=== PATIENT | male | born 1940 | race African-American/Black ===

== ENCOUNTER 2022-09-23 09:00 | Inpatient (IN) ==
[2022-09-23] MEDS ORDERED: LIDOCAINE 2% TOP JELLY 20 ML VIAL INTRAURETH ONE (09:10)
[2022-09-23] MEDS ORDERED: VANCOMYCIN INJ 1,000 MG in SODIUM CHLORIDE 0.9% 250 ML IV STA (09:11)
[2022-09-23 09:37] LABS: Bacteria,Urine Few /HPF (Few); Bilirubin,Urine Negative (Negative); Blood, Urine Small mg/dL (Negative); Glucose,Urine (UA) Negative (Negative); Ketones,Urine Trace mg/dL (Negative); Mucus,Urine Occasional /LPF (Occasional); Nitrite,Urine Negative (Negative); Protein,Urine 30 mg/dL (Negative); RBC,Urine 2 /HPF (0-4); Squamous Epithelial Cell,Urine Occasional /HPF (0-10); Urine Appearance Clear (Clear); Urine Color Dark Yellow (Yellow); Urine Specific Gravity 1.015 (1.001-1.035)
[2022-09-23 10:04] LABS: Basophils # 0.1 10*3/uL (0.0-0.2); Basophils % 0.2 % (0.0-0.8); Eosinophils % 0.1 % (0.00-10.9); Hematocrit 29.5 VOL% (42.0-52.0); Hemoglobin 10.2 GM/DL (14.0-18.0); Immature Granulocytes % 5.9 %; Immature Granulocytes Absolute 1.96 #; Lymphocytes # 0.8 10*3/uL (1.4-4.0); Lymphocytes % 2.3 % (21.2-54.2); Mean Corpuscular HGB Conc 34.6 GM/DL (32-36); Mean Corpuscular Volume 95.2 FL (87-102); Mean Platelet Volume 10.1 FL (9.6-12.0); Monocytes # 2.4 10*3/uL (0.11-0.8); Monocytes % 7.3 % (1.7-12.7); Neutrophils % 84.2 % (38.7-73.9); Platelet Count 198 T/CUMM (130-400); Red Cell Distribution Width 12.6 % (9.3-17.3); White Blood Count 33.3 T/CUMM (4-12)
[2022-09-23 10:27] LABS: Band Neutrophils 3 % (0-10); Hypochromia Slight; Lymphocytes 2 % (20-55); Platelet Estimate Adequate; Total Cells Counted 100
[2022-09-23 10:28] LABS: Albumin 2.6 G/DL (3.4-5.0); Bilirubin,Total 1.1 MG/DL (0.20-1.00); Calcium 9.6 MG/DL (8.5-10.1); Osmolality,Calculated 261.9 MOS/KG (273-304); Potassium 4.8 MMOL/L (3.5-5.1)
[2022-09-23] MEDS ORDERED: ALBUTEROL 2.5 MG/3 ML NEB RESP TX PRN (11:33)
[2022-09-23] MEDS ORDERED: hydrALAZINE 20 MG/1 ML VIAL IV PRN (11:33)
[2022-09-23] MEDS ORDERED: ACETAMINOPHEN 325 MG TABLET PO PRN (11:33)
[2022-09-23] MEDS: SODIUM CHLORIDE 0.9% 1,000 ML IV SCH ×2 (12:41→21:17)
[2022-09-23] MEDS: LEVOFLOXACIN INJ 750 MG/150 ML PREMIX IV SCH (12:42)
[2022-09-23] MEDS ORDERED: MECLIZINE 25 MG TABLET PO PRN (15:11)
[2022-09-23] MEDS: TAMSULOSIN 0.4 MG CAPSULE PO SCH (21:13)
[2022-09-23] MEDS: DOCUSATE SODIUM 100 MG CAPSULE PO SCH (21:13)
[2022-09-23] MEDS: OSELTAMIVIR 30 MG CAPSULE PO SCH (21:13)
[2022-09-23] MEDS: TRAVOPROST 0.004% OPH SOLN 2.5 ML BOTTLE BOTH EYES SCH (21:14)
[2022-09-24 04:49] LABS: Basophils % 0.1 % (0.0-0.8); Hemoglobin 9.9 GM/DL (14.0-18.0); Immature Granulocytes % 7.5 %; Immature Granulocytes Absolute 2.23 #; Lymphocytes # 0.6 10*3/uL (1.4-4.0); Mean Corpuscular HGB Conc 34.1 GM/DL (32-36); Mean Corpuscular Volume 95.4 FL (87-102); Mean Platelet Volume 9.8 FL (9.6-12.0); Monocytes # 1.8 10*3/uL (0.11-0.8); Neutrophils % 84.4 % (38.7-73.9); Platelet Count 176 T/CUMM (130-400); Red Blood Count 3.04 MC/CUMM (3.8-5.5); Red Cell Distribution Width 12.7 % (9.3-17.3); White Blood Count 29.7 T/CUMM (4-12)
[2022-09-24] MEDS: SODIUM CHLORIDE 0.9% 1,000 ML IV SCH ×3 (05:00→20:07)
[2022-09-24 05:30] LABS: Band Neutrophils 9 % (0-10); Calcium 9.3 MG/DL (8.5-10.1); Lymphocytes 1 % (20-55); Osmolality,Calculated 271.2 MOS/KG (273-304); Potassium 3.8 MMOL/L (3.5-5.1); Risk Ratio 2.7; Thyroid Stimulating Hormone 1.2 uIU/ml (0.358-3.74); Total Cells Counted 100
[2022-09-24 05:31] LABS: Microcytosis 1+; Ovalocytes Slight; Polychromasia Slight
[2022-09-24 05:32] LABS: Platelet Estimate Adequate
[2022-09-24] MEDS: amLODIPine 10 MG TABLET PO SCH (08:25)
[2022-09-24] MEDS: OSELTAMIVIR 30 MG CAPSULE PO SCH ×2 (08:25→20:08)
[2022-09-24] MEDS: DOCUSATE SODIUM 100 MG CAPSULE PO SCH ×2 (08:25→20:08)
[2022-09-24] MEDS: PANTOPRAZOLE 40 MG TABLET PO SCH (08:25)
[2022-09-24 12:12] LABS: % Iron Saturation 8.2 % (18-50); Ferritin 996.5 ng/mL (26-388)
[2022-09-24 12:12] LABS: Folate 4.59 NG/ML (5.38-24.0)
[2022-09-24] MEDS: LEVOFLOXACIN INJ 750 MG/150 ML PREMIX IV SCH (12:35)
[2022-09-24] MEDS: TAMSULOSIN 0.4 MG CAPSULE PO SCH (20:08)
[2022-09-24] MEDS: TRAVOPROST 0.004% OPH SOLN 2.5 ML BOTTLE BOTH EYES SCH (20:08)
[2022-09-24] MEDS: FOLIC ACID 1 MG TABLET PO SCH (20:08)
[2022-09-25] MEDS: SODIUM CHLORIDE 0.9% 1,000 ML IV SCH (04:24)
[2022-09-25 05:23] LABS: Basophils # 0.1 10*3/uL (0.0-0.2); Basophils % 0.2 % (0.0-0.8); Hematocrit 30.4 VOL% (42.0-52.0); Immature Granulocytes % 4.1 %; Immature Granulocytes Absolute 1.29 #; Lymphocytes # 0.5 10*3/uL (1.4-4.0); Lymphocytes % 1.7 % (21.2-54.2); Mean Corpuscular HGB Conc 32.9 GM/DL (32-36); Mean Corpuscular Volume 96.8 FL (87-102); Mean Platelet Volume 10.3 FL (9.6-12.0); Monocytes # 1.1 10*3/uL (0.11-0.8); Monocytes % 3.5 % (1.7-12.7); Neutrophils % 90.5 % (38.7-73.9); Platelet Count 202 T/CUMM (130-400); Red Blood Count 3.14 MC/CUMM (3.8-5.5); Red Cell Distribution Width 12.9 % (9.3-17.3); White Blood Count 31.7 T/CUMM (4-12)
[2022-09-25 05:36] LABS: Calcium 10.2 MG/DL (8.5-10.1); Osmolality,Calculated 280.4 MOS/KG (273-304); Potassium 2.7 MMOL/L (3.5-5.1)
[2022-09-25 06:18] LABS: Band Neutrophils 14 % (0-10); Hypersegmented Neutrophil Few; Lymphocytes 1 % (20-55); Platelet Estimate Normal; Total Cells Counted 100
[2022-09-25 06:19] LABS: Anisocytosis 1+; Burr Cells 1+; Macrocytosis 1+
[2022-09-25] MEDS ORDERED: POTASSIUM CHLORIDE RIDER 10 MEQ/100 ML PREMIX IV PRN (07:30)
[2022-09-25] MEDS: FERRIC GLUCONATE COMPLEX 125 MG in SODIUM CHLORIDE 0.9% 100 ML IV SCH (08:33)
[2022-09-25] MEDS: OSELTAMIVIR 30 MG CAPSULE PO SCH ×2 (08:34→20:44)
[2022-09-25] MEDS: PANTOPRAZOLE 40 MG TABLET PO SCH (08:34)
[2022-09-25] MEDS: amLODIPine 10 MG TABLET PO SCH (08:34)
[2022-09-25] MEDS: DOCUSATE SODIUM 100 MG CAPSULE PO SCH ×2 (08:34→20:44)
[2022-09-25] MEDS: FOLIC ACID 1 MG TABLET PO SCH ×2 (08:34→20:44)
[2022-09-25] MEDS ORDERED: CYANOCOBALAMIN 500 MCG TABLET PO SCH (09:00)
[2022-09-25] MEDS: LEVOFLOXACIN INJ 750 MG/150 ML PREMIX IV SCH (09:52)
[2022-09-25] MEDS ORDERED: AMINO ACIDS/DEXT/LYTES 4.25-5% 2,000 ML IV SCH (10:00)
[2022-09-25] MEDS: SODIUM CHLOR 0.9% KCL 40 MEQ 40 MEQ/1,000 ML BAG IV SCH ×2 (11:27→20:51)
[2022-09-25] MEDS ORDERED: MAGNESIUM SULF RIDER 2 GM/50 ML PREMIX IV PRN (12:28)
[2022-09-25] MEDS ORDERED: MAGNESIUM SULF RIDER 4 GM/100 ML PREMIX IV PRN (12:28)
[2022-09-25] MEDS ORDERED: DEXTROSE 10% 1,000 ML IV PRN (12:29)
[2022-09-25] MEDS: MULTIVITAMIN INJ 10 ML in AMINO ACIDS/DEXT/LYTES 4.25-5% 1,000 ML IV SCH (16:45)
[2022-09-25] MEDS: FAT EMULSION 20% 250 ML IV SCH (16:45)
[2022-09-25] MEDS: TAMSULOSIN 0.4 MG CAPSULE PO SCH (20:44)
[2022-09-25] MEDS: TRAVOPROST 0.004% OPH SOLN 2.5 ML BOTTLE BOTH EYES SCH (20:44)
[2022-09-26 04:47] LABS: Basophils % 0.2 % (0.0-0.8); Eosinophils # 0.1 10*3/uL (0.0-0.87); Eosinophils % 0.3 % (0.00-10.9); Hemoglobin 11.4 GM/DL (14.0-18.0); Immature Granulocytes % 0.6 %; Immature Granulocytes Absolute 0.13 #; Lymphocytes # 0.7 10*3/uL (1.4-4.0); Mean Corpuscular HGB Conc 33.5 GM/DL (32-36); Mean Corpuscular Volume 96.6 FL (87-102); Mean Platelet Volume 9.9 FL (9.6-12.0); Monocytes % 4.2 % (1.7-12.7); Neutrophils % 91.7 % (38.7-73.9); Platelet Count 211 T/CUMM (130-400); Red Blood Count 3.52 MC/CUMM (3.8-5.5); Red Cell Distribution Width 13.1 % (9.3-17.3); White Blood Count 23.6 T/CUMM (4-12)
[2022-09-26 05:13] LABS: Calcium 10.3 MG/DL (8.5-10.1); Osmolality,Calculated 292.6 MOS/KG (273-304); Potassium 2.8 MMOL/L (3.5-5.1)
[2022-09-26 05:27] LABS: Band Neutrophils 3 % (0-10); Eosinophils 4 % (0-10); Platelet Estimate Normal; Total Cells Counted 100
[2022-09-26 06:04] LABS: Phosphorous 1.7 MG/DL (2.5-4.9)
[2022-09-26] MEDS: SODIUM CHLOR 0.9% KCL 40 MEQ 40 MEQ/1,000 ML BAG IV SCH ×2 (06:04→23:52)
[2022-09-26] MEDS: FERRIC GLUCONATE COMPLEX 125 MG in SODIUM CHLORIDE 0.9% 100 ML IV SCH (09:54)
[2022-09-26] MEDS: OSELTAMIVIR 30 MG CAPSULE PO SCH ×2 (09:56→21:19)
[2022-09-26] MEDS: PANTOPRAZOLE 40 MG TABLET PO SCH (09:56)
[2022-09-26] MEDS: CYANOCOBALAMIN 1000 MCG/1 ML VIAL IM SCH (09:56)
[2022-09-26] MEDS: DOCUSATE SODIUM 100 MG CAPSULE PO SCH ×2 (09:56→21:19)
[2022-09-26] MEDS: FOLIC ACID 1 MG TABLET PO SCH ×2 (09:56→21:20)
[2022-09-26] MEDS: amLODIPine 10 MG TABLET PO SCH (09:57)
[2022-09-26] MEDS: LEVOFLOXACIN INJ 750 MG/150 ML PREMIX IV SCH (11:03)
[2022-09-26] MEDS ORDERED: POTASSIUM CHLORIDE RIDER 10 MEQ/100 ML PREMIX IV SCH ×2 (12:00)
[2022-09-26] MEDS ORDERED: SODIUM PHOSPHATE IV ONE (13:00)
[2022-09-26] MEDS ORDERED: POTASSIUM CHLORIDE INJ 50 MEQ in SODIUM CHLORIDE 0.9% 500 ML IV ONE (13:00)
[2022-09-26] MEDS ORDERED: SODIUM CHLORIDE 0.9% IV ONE (13:00)
[2022-09-26] MEDS: FAT EMULSION 20% 250 ML IV SCH (14:40)
[2022-09-26] MEDS: MULTIVITAMIN INJ 10 ML in AMINO ACIDS/DEXT/LYTES 4.25-5% 1,000 ML IV SCH (18:00)
[2022-09-26] MEDS: TAMSULOSIN 0.4 MG CAPSULE PO SCH (21:19)
[2022-09-26] MEDS: TRAVOPROST 0.004% OPH SOLN 2.5 ML BOTTLE BOTH EYES SCH (21:20)
[2022-09-26] MEDS: LINEZOLID INJ 600 MG/300 ML PREMIX IV SCH (22:46)
[2022-09-27] MEDS: SODIUM CHLOR 0.9% KCL 40 MEQ 40 MEQ/1,000 ML BAG IV SCH ×3 (03:00→23:30)
[2022-09-27] MEDS: LEVOFLOXACIN INJ 750 MG/150 ML PREMIX IV SCH (09:41)
[2022-09-27] MEDS: CYANOCOBALAMIN 1000 MCG/1 ML VIAL IM SCH (09:41)
[2022-09-27] MEDS: FOLIC ACID 1 MG TABLET PO SCH ×2 (10:25→20:20)
[2022-09-27] MEDS: PANTOPRAZOLE 40 MG TABLET PO SCH (10:25)
[2022-09-27] MEDS: amLODIPine 10 MG TABLET PO SCH (10:25)
[2022-09-27] MEDS: DOCUSATE SODIUM 100 MG CAPSULE PO SCH ×2 (10:25→20:20)
[2022-09-27] MEDS: OSELTAMIVIR 30 MG CAPSULE PO SCH ×2 (10:25→20:20)
[2022-09-27] MEDS: LINEZOLID INJ 600 MG/300 ML PREMIX IV SCH ×2 (11:20→20:20)
[2022-09-27] MEDS: FERRIC GLUCONATE COMPLEX 125 MG in SODIUM CHLORIDE 0.9% 100 ML IV SCH (12:50)
[2022-09-27] MEDS: POTASSIUM CHLORIDE RIDER 10 MEQ/100 ML PREMIX IV PRN ×2 (15:38→16:38)
[2022-09-27] MEDS: FAT EMULSION 20% 250 ML IV SCH (15:38)
[2022-09-27] MEDS: MULTIVITAMIN INJ 10 ML in AMINO ACIDS/DEXT/LYTES 4.25-5% 1,000 ML IV SCH (16:41)
[2022-09-27] MEDS: POTASSIUM CHLORIDE RIDER 10 MEQ/100 ML PREMIX IV SCH ×4 (18:05→21:20)
[2022-09-27] MEDS: TAMSULOSIN 0.4 MG CAPSULE PO SCH (20:20)
[2022-09-27] MEDS: BISACODYL 10 MG SUPP RECTAL SCH (20:20)
[2022-09-27] MEDS: TRAVOPROST 0.004% OPH SOLN 2.5 ML BOTTLE BOTH EYES SCH (20:59)
[2022-09-28 06:38] LABS: Basophils % 0.4 % (0.0-0.8); Eosinophils # 0.2 10*3/uL (0.0-0.87); Eosinophils % 1.5 % (0.00-10.9); Hemoglobin 11.4 GM/DL (14.0-18.0); Immature Granulocytes % 1.7 %; Immature Granulocytes Absolute 0.18 #; Lymphocytes # 0.8 10*3/uL (1.4-4.0); Lymphocytes % 7.8 % (21.2-54.2); Mean Corpuscular HGB Conc 33.5 GM/DL (32-36); Mean Corpuscular Volume 96.9 FL (87-102); Mean Platelet Volume 10.1 FL (9.6-12.0); Monocytes # 1.4 10*3/uL (0.11-0.8); Monocytes % 13.4 % (1.7-12.7); Neutrophils % 75.2 % (38.7-73.9); Platelet Count 191 T/CUMM (130-400); Red Blood Count 3.51 MC/CUMM (3.8-5.5); Red Cell Distribution Width 13.4 % (9.3-17.3); White Blood Count 10.62 T/CUMM (4-12)
[2022-09-28 07:01] LABS: Phosphorous 2.1 MG/DL (2.5-4.9)
[2022-09-28 07:04] LABS: Calcium 9.8 MG/DL (8.5-10.1); Osmolality,Calculated 295.3 MOS/KG (273-304); Potassium 3.7 MMOL/L (3.5-5.1)
[2022-09-28] MEDS: LEVOFLOXACIN INJ 750 MG/150 ML PREMIX IV SCH (08:37)
[2022-09-28] MEDS: PANTOPRAZOLE 40 MG TABLET PO SCH (08:38)
[2022-09-28] MEDS: FOLIC ACID 1 MG TABLET PO SCH ×2 (08:38→22:03)
[2022-09-28] MEDS: OSELTAMIVIR 30 MG CAPSULE PO SCH ×2 (08:38→22:03)
[2022-09-28] MEDS: amLODIPine 10 MG TABLET PO SCH (08:38)
[2022-09-28] MEDS: DOCUSATE SODIUM 100 MG CAPSULE PO SCH ×2 (08:39→22:02)
[2022-09-28] MEDS: BISACODYL 10 MG SUPP RECTAL SCH ×2 (08:39→23:02)
[2022-09-28] MEDS: CYANOCOBALAMIN 1000 MCG/1 ML VIAL IM SCH (08:40)
[2022-09-28] MEDS: LINEZOLID INJ 600 MG/300 ML PREMIX IV SCH ×2 (10:12→23:03)
[2022-09-28] MEDS: SODIUM CHLOR 0.9% KCL 40 MEQ 40 MEQ/1,000 ML BAG IV SCH (13:44)
[2022-09-28] MEDS: FAT EMULSION 20% 250 ML IV SCH (14:05)
[2022-09-28] MEDS: POTASSIUM PHOS/SOD PHOS POWDER 250 MG PACK PO SCH (16:19)
[2022-09-28] MEDS: MULTIVITAMIN INJ 10 ML in AMINO ACIDS/DEXT/LYTES 4.25-5% 2,000 ML IV SCH (17:22)
[2022-09-28] MEDS: TAMSULOSIN 0.4 MG CAPSULE PO SCH (22:02)
[2022-09-28] MEDS: TRAVOPROST 0.004% OPH SOLN 2.5 ML BOTTLE BOTH EYES SCH (22:03)
[2022-09-29 06:09] LABS: Basophils % 0.4 % (0.0-0.8); Eosinophils # 0.2 10*3/uL (0.0-0.87); Eosinophils % 2.3 % (0.00-10.9); Hematocrit 27.3 VOL% (42.0-52.0); Hemoglobin 8.6 GM/DL (14.0-18.0); Immature Granulocytes % 1.5 %; Immature Granulocytes Absolute 0.11 #; Lymphocytes # 0.7 10*3/uL (1.4-4.0); Lymphocytes % 9.9 % (21.2-54.2); Mean Corpuscular HGB Conc 31.5 GM/DL (32-36); Mean Corpuscular Volume 103.4 FL (87-102); Mean Platelet Volume 10.3 FL (9.6-12.0); Monocytes # 1.1 10*3/uL (0.11-0.8); Monocytes % 14.3 % (1.7-12.7); Neutrophils % 71.6 % (38.7-73.9); Platelet Count 149 T/CUMM (130-400); Red Blood Count 2.64 MC/CUMM (3.8-5.5); Red Cell Distribution Width 13.7 % (9.3-17.3); White Blood Count 7.36 T/CUMM (4-12)
[2022-09-29 07:46] LABS: Calcium 9.7 MG/DL (8.5-10.1); Osmolality,Calculated 299.1 MOS/KG (273-304); Potassium 3.1 MMOL/L (3.5-5.1)
[2022-09-29] MEDS: LEVOFLOXACIN INJ 750 MG/150 ML PREMIX IV SCH (08:32)
[2022-09-29] MEDS: amLODIPine 10 MG TABLET PO SCH (08:33)
[2022-09-29] MEDS: POTASSIUM PHOS/SOD PHOS POWDER 250 MG PACK PO SCH ×3 (08:33→21:44)
[2022-09-29] MEDS: FOLIC ACID 1 MG TABLET PO SCH ×2 (08:34→21:44)
[2022-09-29] MEDS: PANTOPRAZOLE 40 MG TABLET PO SCH (08:34)
[2022-09-29] MEDS: CYANOCOBALAMIN 1000 MCG/1 ML VIAL IM SCH (08:38)
[2022-09-29] MEDS: DOCUSATE SODIUM 100 MG CAPSULE PO SCH ×2 (09:56→21:44)
[2022-09-29] MEDS: BISACODYL 10 MG SUPP RECTAL SCH ×2 (09:56→21:44)
[2022-09-29] MEDS: LINEZOLID INJ 600 MG/300 ML PREMIX IV SCH ×2 (10:05→21:45)
[2022-09-29] MEDS: SODIUM CHLOR 0.9% KCL 40 MEQ 40 MEQ/1,000 ML BAG IV SCH ×4 (10:55→14:21)
[2022-09-29] MEDS: POTASSIUM CHLORIDE 20 MEQ TABLET PO PRN ×4 (11:45→18:23)
[2022-09-29] MEDS: FAT EMULSION 20% 250 ML IV SCH (13:57)
[2022-09-29] MEDS: MULTIVITAMIN INJ 10 ML in AMINO ACIDS/DEXT/LYTES 4.25-5% 2,000 ML IV SCH (17:55)
[2022-09-29] MEDS: TAMSULOSIN 0.4 MG CAPSULE PO SCH (21:44)
[2022-09-29] MEDS: TRAVOPROST 0.004% OPH SOLN 2.5 ML BOTTLE BOTH EYES SCH (21:45)
[2022-09-29] MEDS: ONDANSETRON 4 MG/2 ML VIAL IV PRN (23:03)
[2022-09-29 23:43] LABS: Arterial Base Excess iSTAT -6 MMOL/L (-2.5-2.5); Arterial O2 Saturation iSTAT 99 % (95-100); Arterial PCO2 iSTAT 42 MM HG (35-48); Arterial PO2 iSTAT 169 MM HG (80-95); Arterial Total CO2 iSTAT 21 MMO/L (23-27); Arterial pH iSTAT 7.284 (7.35-7.45)
[2022-09-30 01:04] LABS: Basophils % 0.2 % (0.0-0.8); Eosinophils # 0.2 10*3/uL (0.0-0.87); Eosinophils % 2.1 % (0.00-10.9); Hematocrit 33.1 VOL% (42.0-52.0); Hemoglobin 10.5 GM/DL (14.0-18.0); Immature Granulocytes % 2.5 %; Immature Granulocytes Absolute 0.23 #; Lymphocytes # 0.9 10*3/uL (1.4-4.0); Lymphocytes % 9.4 % (21.2-54.2); Mean Corpuscular HGB Conc 31.7 GM/DL (32-36); Mean Corpuscular Volume 100.3 FL (87-102); Mean Platelet Volume 9.9 FL (9.6-12.0); Monocytes # 0.8 10*3/uL (0.11-0.8); Monocytes % 9.2 % (1.7-12.7); Neutrophils % 76.6 % (38.7-73.9); Platelet Count 168 T/CUMM (130-400); Red Cell Distribution Width 13.7 % (9.3-17.3); White Blood Count 9.17 T/CUMM (4-12)
[2022-09-30] MEDS: SODIUM CHLOR 0.9% KCL 40 MEQ 40 MEQ/1,000 ML BAG IV SCH ×2 (01:04→15:15)
[2022-09-30 04:29] LABS: Calcium 9.4 MG/DL (8.5-10.1); Osmolality,Calculated 301.3 MOS/KG (273-304); Potassium 4.3 MMOL/L (3.5-5.1)
[2022-09-30] MEDS: PANTOPRAZOLE 40 MG TABLET PO SCH (10:09)
[2022-09-30] MEDS: FOLIC ACID 1 MG TABLET PO SCH ×2 (10:09→21:45)
[2022-09-30] MEDS: POTASSIUM PHOS/SOD PHOS POWDER 250 MG PACK PO SCH ×2 (10:09→16:25)
[2022-09-30] MEDS: LEVOFLOXACIN INJ 750 MG/150 ML PREMIX IV SCH (10:10)
[2022-09-30] MEDS: BISACODYL 10 MG SUPP RECTAL SCH ×2 (10:10→21:45)
[2022-09-30] MEDS: CYANOCOBALAMIN 1000 MCG/1 ML VIAL IM SCH (10:10)
[2022-09-30] MEDS: amLODIPine 10 MG TABLET PO SCH (10:10)
[2022-09-30] MEDS: DOCUSATE SODIUM 100 MG CAPSULE PO SCH ×2 (10:10→21:45)
[2022-09-30] MEDS: LINEZOLID INJ 600 MG/300 ML PREMIX IV SCH ×2 (10:12→21:44)
[2022-09-30] MEDS ORDERED: POTASSIUM PHOS/SOD PHOS POWDER 250 MG PACK PO SCH (16:00)
[2022-09-30] MEDS ORDERED: FUROSEMIDE 40 MG/4 ML VIAL IV ONE (16:07)
[2022-09-30] MEDS: FAT EMULSION 20% 250 ML IV SCH (16:34)
[2022-09-30] MEDS: LYTES IV SCH (17:49)
[2022-09-30] MEDS: DEX IV SCH (17:49)
[2022-09-30] MEDS: MULTIVITAMIN IV SCH (17:49)
[2022-09-30] MEDS: DEXT IV SCH (17:49)
[2022-09-30] MEDS: AMINO ACIDS IV SCH (17:49)
[2022-09-30] MEDS: TRAVOPROST 0.004% OPH SOLN 2.5 ML BOTTLE BOTH EYES SCH (21:45)
[2022-09-30] MEDS: TAMSULOSIN 0.4 MG CAPSULE PO SCH (21:45)
[2022-10-01] MEDS: SODIUM CHLOR 0.9% KCL 40 MEQ 40 MEQ/1,000 ML BAG IV SCH ×2 (05:52→10:23)
[2022-10-01 06:11] LABS: Calcium 9.6 MG/DL (8.5-10.1); Osmolality,Calculated 299.3 MOS/KG (273-304); Potassium 3.8 MMOL/L (3.5-5.1)
[2022-10-01 06:22] LABS: Basophils % 0.2 % (0.0-0.8); Eosinophils # 0.2 10*3/uL (0.0-0.87); Eosinophils % 1.4 % (0.00-10.9); Hematocrit 30.9 VOL% (42.0-52.0); Hemoglobin 9.7 GM/DL (14.0-18.0); Immature Granulocytes % 1.5 %; Immature Granulocytes Absolute 0.18 #; Lymphocytes # 0.7 10*3/uL (1.4-4.0); Mean Corpuscular HGB Conc 31.4 GM/DL (32-36); Mean Corpuscular Volume 101.3 FL (87-102); Mean Platelet Volume 10.5 FL (9.6-12.0); Monocytes # 0.7 10*3/uL (0.11-0.8); Monocytes % 6.1 % (1.7-12.7); Neutrophils % 84.8 % (38.7-73.9); Platelet Count 150 T/CUMM (130-400); Red Blood Count 3.05 MC/CUMM (3.8-5.5); Red Cell Distribution Width 13.9 % (9.3-17.3); White Blood Count 11.76 T/CUMM (4-12)
[2022-10-01 06:45] LABS: Band Neutrophils 2 % (0-10); Eosinophils 4 % (0-10); Lymphocytes 4 % (20-55); Total Cells Counted 100
[2022-10-01] MEDS ORDERED: FUROSEMIDE 40 MG/4 ML VIAL IV ONE (07:46)
[2022-10-01] MEDS: FOLIC ACID 1 MG TABLET PO SCH ×2 (09:33→21:37)
[2022-10-01] MEDS: DOCUSATE SODIUM 100 MG CAPSULE PO SCH ×2 (09:33→21:37)
[2022-10-01] MEDS: PANTOPRAZOLE 40 MG TABLET PO SCH (09:33)
[2022-10-01] MEDS: amLODIPine 10 MG TABLET PO SCH (09:33)
[2022-10-01] MEDS: MULTIVITAMIN IV SCH (09:34)
[2022-10-01] MEDS: DEXT IV SCH (09:34)
[2022-10-01] MEDS: DEX IV SCH (09:34)
[2022-10-01] MEDS: AMINO ACIDS IV SCH (09:34)
[2022-10-01] MEDS: LYTES IV SCH (09:34)
[2022-10-01] MEDS: CYANOCOBALAMIN 1000 MCG/1 ML VIAL IM SCH (09:35)
[2022-10-01] MEDS: LINEZOLID INJ 600 MG/300 ML PREMIX IV SCH ×2 (09:38→21:36)
[2022-10-01] MEDS: BISACODYL 10 MG SUPP RECTAL SCH ×2 (09:41→21:37)
[2022-10-01] MEDS: TRAVOPROST 0.004% OPH SOLN 2.5 ML BOTTLE BOTH EYES SCH (21:37)
[2022-10-01] MEDS: TAMSULOSIN 0.4 MG CAPSULE PO SCH (21:37)
[2022-10-02] MEDS: SODIUM CHLOR 0.9% KCL 40 MEQ 40 MEQ/1,000 ML BAG IV SCH ×2 (00:02→15:25)
[2022-10-02 06:07] LABS: Basophils % 0.3 % (0.0-0.8); Eosinophils # 0.2 10*3/uL (0.0-0.87); Hematocrit 30.7 VOL% (42.0-52.0); Hemoglobin 9.9 GM/DL (14.0-18.0); Immature Granulocytes % 0.9 %; Immature Granulocytes Absolute 0.14 #; Lymphocytes # 0.7 10*3/uL (1.4-4.0); Lymphocytes % 4.4 % (21.2-54.2); Mean Corpuscular HGB Conc 32.2 GM/DL (32-36); Mean Corpuscular Volume 100.3 FL (87-102); Mean Platelet Volume 10.2 FL (9.6-12.0); Monocytes # 0.7 10*3/uL (0.11-0.8); Monocytes % 4.6 % (1.7-12.7); Neutrophils % 88.8 % (38.7-73.9); Platelet Count 158 T/CUMM (130-400); Red Blood Count 3.06 MC/CUMM (3.8-5.5); Red Cell Distribution Width 13.7 % (9.3-17.3); White Blood Count 15.29 T/CUMM (4-12)
[2022-10-02 06:21] LABS: Calcium 9.6 MG/DL (8.5-10.1); Osmolality,Calculated 296.1 MOS/KG (273-304)
[2022-10-02 06:41] LABS: Lymphocytes 4 % (20-55); Total Cells Counted 100
[2022-10-02 06:42] LABS: Platelet Estimate Adequate
[2022-10-02] MEDS ORDERED: FUROSEMIDE 40 MG/4 ML VIAL IV ONE (09:30)
[2022-10-02] MEDS: LINEZOLID INJ 600 MG/300 ML PREMIX IV SCH ×2 (09:43→20:55)
[2022-10-02] MEDS: DOCUSATE SODIUM 100 MG CAPSULE PO SCH ×2 (09:44→20:54)
[2022-10-02] MEDS: amLODIPine 10 MG TABLET PO SCH (09:44)
[2022-10-02] MEDS: PANTOPRAZOLE 40 MG TABLET PO SCH (09:44)
[2022-10-02] MEDS: FOLIC ACID 1 MG TABLET PO SCH ×2 (09:45→20:54)
[2022-10-02] MEDS: BISACODYL 10 MG SUPP RECTAL SCH ×2 (09:45→20:54)
[2022-10-02] MEDS: CYANOCOBALAMIN 1000 MCG/1 ML VIAL IM SCH (09:46)
[2022-10-02] MEDS: ONDANSETRON 4 MG/2 ML VIAL IV PRN ×2 (09:47→09:51)
[2022-10-02] MEDS ORDERED: NEOSTIGMINE 10 MG/10 ML VIAL IV ONE ×2 (11:00→14:30)
[2022-10-02] MEDS ORDERED: ATROPINE 1 MG/10 ML SYRINGE IV ONE (14:30)
[2022-10-02] MEDS ORDERED: POTASSIUM CHLORIDE 20 MEQ TABLET PO ONE (14:30)
[2022-10-02] MEDS ORDERED: POTASSIUM CHLORIDE RIDER 10 MEQ/100 ML PREMIX IV ONE (14:30)
[2022-10-02] MEDS: MEROPENEM 500 MG in SODIUM CHLORIDE 0.9% 100 ML IV SCH ×2 (17:06→20:55)
[2022-10-02] MEDS ORDERED: NEOSTIGMINE 10 MG/10 ML VIAL IV STA (18:10)
[2022-10-02] MEDS: TAMSULOSIN 0.4 MG CAPSULE PO SCH (20:54)
[2022-10-02] MEDS: TRAVOPROST 0.004% OPH SOLN 2.5 ML BOTTLE BOTH EYES SCH (20:55)
[2022-10-03] MEDS: MEROPENEM 500 MG in SODIUM CHLORIDE 0.9% 100 ML IV SCH ×4 (03:05→21:45)
[2022-10-03 05:49] LABS: Basophils % 0.2 % (0.0-0.8); Eosinophils # 0.1 10*3/uL (0.0-0.87); Eosinophils % 0.8 % (0.00-10.9); Hematocrit 32.5 VOL% (42.0-52.0); Hemoglobin 10.3 GM/DL (14.0-18.0); Immature Granulocytes % 0.7 %; Immature Granulocytes Absolute 0.12 #; Lymphocytes # 0.6 10*3/uL (1.4-4.0); Lymphocytes % 3.6 % (21.2-54.2); Mean Corpuscular HGB Conc 31.7 GM/DL (32-36); Mean Corpuscular Volume 100.6 FL (87-102); Mean Platelet Volume 10.2 FL (9.6-12.0); Monocytes # 0.7 10*3/uL (0.11-0.8); Monocytes % 4.1 % (1.7-12.7); Neutrophils % 90.6 % (38.7-73.9); Platelet Count 160 T/CUMM (130-400); Red Blood Count 3.23 MC/CUMM (3.8-5.5); Red Cell Distribution Width 13.6 % (9.3-17.3); White Blood Count 16.54 T/CUMM (4-12)
[2022-10-03 06:15] LABS: Calcium 9.7 MG/DL (8.5-10.1); Potassium 3.1 MMOL/L (3.5-5.1)
[2022-10-03 06:32] LABS: Band Neutrophils 6 % (0-10); Eosinophils 1 % (0-10); Lymphocytes 4 % (20-55); Platelet Estimate Normal; Total Cells Counted 100
[2022-10-03 06:33] LABS: Anisocytosis 1+; Macrocytosis 1+
[2022-10-03] MEDS: POTASSIUM CHLORIDE 20 MEQ TABLET PO PRN ×2 (09:51→11:46)
[2022-10-03] MEDS: amLODIPine 10 MG TABLET PO SCH (09:51)
[2022-10-03] MEDS: FOLIC ACID 1 MG TABLET PO SCH ×2 (09:51→21:45)
[2022-10-03] MEDS: BISACODYL 10 MG SUPP RECTAL SCH ×2 (09:52→21:44)
[2022-10-03] MEDS: PANTOPRAZOLE 40 MG TABLET PO SCH (09:52)
[2022-10-03] MEDS: DOCUSATE SODIUM 100 MG CAPSULE PO SCH ×2 (09:52→21:45)
[2022-10-03] MEDS: LINEZOLID INJ 600 MG/300 ML PREMIX IV SCH (09:52)
[2022-10-03] MEDS: CYANOCOBALAMIN 1000 MCG/1 ML VIAL IM SCH (09:53)
[2022-10-03] MEDS: ONDANSETRON 4 MG/2 ML VIAL IV PRN ×2 (13:20→22:20)
[2022-10-03] MEDS: POTASSIUM CHLORIDE 20 MEQ TABLET PO SCH ×2 (15:26→21:45)
[2022-10-03] MEDS: METOCLOPRAMIDE 10 MG/2 ML VIAL IV SCH (17:14)
[2022-10-03] MEDS: TRAVOPROST 0.004% OPH SOLN 2.5 ML BOTTLE BOTH EYES SCH (21:45)
[2022-10-03] MEDS: TAMSULOSIN 0.4 MG CAPSULE PO SCH (21:45)
[2022-10-04] MEDS: METOCLOPRAMIDE 10 MG/2 ML VIAL IV SCH ×5 (00:54→23:23)
[2022-10-04] MEDS: MEROPENEM 500 MG in SODIUM CHLORIDE 0.9% 100 ML IV SCH ×4 (03:50→21:09)
[2022-10-04 05:24] LABS: Basophils % 0.2 % (0.0-0.8); Eosinophils # 0.1 10*3/uL (0.0-0.87); Eosinophils % 0.7 % (0.00-10.9); Hemoglobin 9.7 GM/DL (14.0-18.0); Immature Granulocytes % 0.7 %; Immature Granulocytes Absolute 0.12 #; Lymphocytes # 0.8 10*3/uL (1.4-4.0); Lymphocytes % 4.9 % (21.2-54.2); Mean Corpuscular HGB Conc 31.3 GM/DL (32-36); Mean Corpuscular Volume 101.3 FL (87-102); Mean Platelet Volume 10.2 FL (9.6-12.0); Monocytes # 0.8 10*3/uL (0.11-0.8); Monocytes % 4.9 % (1.7-12.7); Neutrophils % 88.6 % (38.7-73.9); Platelet Count 150 T/CUMM (130-400); Red Blood Count 3.06 MC/CUMM (3.8-5.5); Red Cell Distribution Width 13.7 % (9.3-17.3); White Blood Count 16.81 T/CUMM (4-12)
[2022-10-04 05:54] LABS: Calcium 9.6 MG/DL (8.5-10.1); Osmolality,Calculated 302.6 MOS/KG (273-304); Potassium 3.3 MMOL/L (3.5-5.1)
[2022-10-04 05:59] LABS: Band Neutrophils 2 % (0-10); Eosinophils 2 % (0-10); Lymphocytes 4 % (20-55); Platelet Estimate Normal; Total Cells Counted 100
[2022-10-04 06:00] LABS: Anisocytosis 1+; Macrocytosis Slight
[2022-10-04] MEDS: DOCUSATE SODIUM 100 MG CAPSULE PO SCH ×2 (10:12→21:08)
[2022-10-04] MEDS: BISACODYL 10 MG SUPP RECTAL SCH ×2 (10:12→21:08)
[2022-10-04] MEDS: PANTOPRAZOLE 40 MG TABLET PO SCH (10:12)
[2022-10-04] MEDS: FOLIC ACID 1 MG TABLET PO SCH ×2 (10:12→21:08)
[2022-10-04] MEDS: POTASSIUM CHLORIDE 20 MEQ TABLET PO SCH ×3 (10:16→21:09)
[2022-10-04] MEDS: amLODIPine 5 MG TABLET PO SCH (10:16)
[2022-10-04] MEDS: DEXTROSE 5% 1,000 ML IV SCH (12:45)
[2022-10-04] MEDS: TAMSULOSIN 0.4 MG CAPSULE PO SCH (21:08)
[2022-10-04] MEDS: TRAVOPROST 0.004% OPH SOLN 2.5 ML BOTTLE BOTH EYES SCH (22:59)
[2022-10-05] MEDS: MEROPENEM 500 MG in SODIUM CHLORIDE 0.9% 100 ML IV SCH ×4 (02:23→22:05)
[2022-10-05] MEDS: METOCLOPRAMIDE 10 MG/2 ML VIAL IV SCH ×3 (06:08→17:10)
[2022-10-05 06:10] LABS: Basophils % 0.3 % (0.0-0.8); Eosinophils # 0.2 10*3/uL (0.0-0.87); Eosinophils % 1.4 % (0.00-10.9); Hematocrit 30.3 VOL% (42.0-52.0); Hemoglobin 9.6 GM/DL (14.0-18.0); Immature Granulocytes % 0.4 %; Immature Granulocytes Absolute 0.05 #; Lymphocytes # 0.9 10*3/uL (1.4-4.0); Lymphocytes % 7.3 % (21.2-54.2); Mean Corpuscular HGB Conc 31.7 GM/DL (32-36); Mean Corpuscular Volume 102.4 FL (87-102); Mean Platelet Volume 10.1 FL (9.6-12.0); Monocytes # 0.9 10*3/uL (0.11-0.8); Monocytes % 7.6 % (1.7-12.7); Platelet Count 147 T/CUMM (130-400); Red Blood Count 2.96 MC/CUMM (3.8-5.5); Red Cell Distribution Width 13.8 % (9.3-17.3); White Blood Count 12.04 T/CUMM (4-12)
[2022-10-05 06:22] LABS: Calcium 9.7 MG/DL (8.5-10.1); Potassium 3.5 MMOL/L (3.5-5.1)
[2022-10-05 06:32] LABS: Anisocytosis 1+; Macrocytosis 1+; Platelet Estimate Adequate
[2022-10-05 06:33] LABS: Giant Platelets Few
[2022-10-05] MEDS: POTASSIUM CHLORIDE 20 MEQ TABLET PO SCH ×3 (09:45→22:03)
[2022-10-05] MEDS: FOLIC ACID 1 MG TABLET PO SCH ×2 (09:46→22:03)
[2022-10-05] MEDS: PANTOPRAZOLE 40 MG TABLET PO SCH (09:47)
[2022-10-05] MEDS: DOCUSATE SODIUM 100 MG CAPSULE PO SCH ×2 (09:47→22:02)
[2022-10-05] MEDS: amLODIPine 5 MG TABLET PO SCH (09:50)
[2022-10-05] MEDS: BISACODYL 10 MG SUPP RECTAL SCH ×2 (10:06→23:03)
[2022-10-05] MEDS: DEXTROSE 5% 1,000 ML IV SCH (12:40)
[2022-10-05] MEDS: TRAVOPROST 0.004% OPH SOLN 2.5 ML BOTTLE BOTH EYES SCH (22:02)
[2022-10-05] MEDS: TAMSULOSIN 0.4 MG CAPSULE PO SCH (22:03)
[2022-10-06] MEDS: METOCLOPRAMIDE 10 MG/2 ML VIAL IV SCH ×4 (02:40→22:43)
[2022-10-06] MEDS: MEROPENEM 500 MG in SODIUM CHLORIDE 0.9% 100 ML IV SCH ×4 (02:46→22:48)
[2022-10-06 05:50] LABS: Basophils % 0.3 % (0.0-0.8); Eosinophils # 0.2 10*3/uL (0.0-0.87); Eosinophils % 1.6 % (0.00-10.9); Hematocrit 30.2 VOL% (42.0-52.0); Hemoglobin 9.4 GM/DL (14.0-18.0); Immature Granulocytes % 0.4 %; Immature Granulocytes Absolute 0.04 #; Lymphocytes # 1.2 10*3/uL (1.4-4.0); Lymphocytes % 10.2 % (21.2-54.2); Mean Corpuscular HGB Conc 31.1 GM/DL (32-36); Mean Corpuscular Volume 102.4 FL (87-102); Mean Platelet Volume 10.8 FL (9.6-12.0); Monocytes # 1.2 10*3/uL (0.11-0.8); Monocytes % 10.2 % (1.7-12.7); Neutrophils % 77.3 % (38.7-73.9); Platelet Count 141 T/CUMM (130-400); Red Blood Count 2.95 MC/CUMM (3.8-5.5); Red Cell Distribution Width 13.9 % (9.3-17.3); White Blood Count 11.25 T/CUMM (4-12)
[2022-10-06 06:12] LABS: Osmolality,Calculated 308.2 MOS/KG (273-304); Potassium 3.8 MMOL/L (3.5-5.1)
[2022-10-06] MEDS: FOLIC ACID 1 MG TABLET PO SCH ×2 (09:07→22:47)
[2022-10-06] MEDS: amLODIPine 5 MG TABLET PO SCH (09:07)
[2022-10-06] MEDS: PANTOPRAZOLE 40 MG TABLET PO SCH (09:07)
[2022-10-06] MEDS: POTASSIUM CHLORIDE 20 MEQ TABLET PO SCH ×3 (09:07→22:47)
[2022-10-06] MEDS: BISACODYL 10 MG SUPP RECTAL SCH ×2 (10:29→22:47)
[2022-10-06] MEDS: DOCUSATE SODIUM 100 MG CAPSULE PO SCH ×2 (10:29→22:47)
[2022-10-06] MEDS: DEXTROSE 5% 1,000 ML IV SCH (22:47)
[2022-10-06] MEDS: TAMSULOSIN 0.4 MG CAPSULE PO SCH (22:47)
[2022-10-06] MEDS: TRAVOPROST 0.004% OPH SOLN 2.5 ML BOTTLE BOTH EYES SCH (23:20)
[2022-10-07] MEDS: METOCLOPRAMIDE 10 MG/2 ML VIAL IV SCH ×2 (03:57→14:55)
[2022-10-07] MEDS: MEROPENEM 500 MG in SODIUM CHLORIDE 0.9% 100 ML IV SCH ×4 (04:00→21:48)
[2022-10-07 05:20] LABS: Basophils % 0.3 % (0.0-0.8); Eosinophils # 0.2 10*3/uL (0.0-0.87); Eosinophils % 1.7 % (0.00-10.9); Hematocrit 32.1 VOL% (42.0-52.0); Hemoglobin 9.6 GM/DL (14.0-18.0); Immature Granulocytes % 0.8 %; Immature Granulocytes Absolute 0.08 #; Lymphocytes # 1.2 10*3/uL (1.4-4.0); Lymphocytes % 11.3 % (21.2-54.2); Mean Corpuscular HGB Conc 29.9 GM/DL (32-36); Mean Corpuscular Volume 104.6 FL (87-102); Mean Platelet Volume 10.9 FL (9.6-12.0); Monocytes % 10.2 % (1.7-12.7); Neutrophils % 75.7 % (38.7-73.9); Platelet Count 153 T/CUMM (130-400); Red Blood Count 3.07 MC/CUMM (3.8-5.5); White Blood Count 10.23 T/CUMM (4-12)
[2022-10-07 05:52] LABS: Calcium 10.5 MG/DL (8.5-10.1); Osmolality,Calculated 307.2 MOS/KG (273-304)
[2022-10-07] MEDS: POTASSIUM CHLORIDE 20 MEQ TABLET PO SCH ×3 (10:46→21:48)
[2022-10-07] MEDS: DOCUSATE SODIUM 100 MG CAPSULE PO SCH ×2 (10:46→21:49)
[2022-10-07] MEDS: BISACODYL 10 MG SUPP RECTAL SCH (10:46)
[2022-10-07] MEDS: amLODIPine 5 MG TABLET PO SCH (10:46)
[2022-10-07] MEDS: PANTOPRAZOLE 40 MG TABLET PO SCH (10:47)
[2022-10-07] MEDS: FOLIC ACID 1 MG TABLET PO SCH ×2 (10:47→21:48)
[2022-10-07] MEDS: DEXTROSE 5% 1,000 ML IV SCH (11:52)
[2022-10-07] MEDS: TAMSULOSIN 0.4 MG CAPSULE PO SCH (21:48)
[2022-10-07] MEDS: TRAVOPROST 0.004% OPH SOLN 2.5 ML BOTTLE BOTH EYES SCH (22:04)
[2022-10-08] MEDS: DEXTROSE 5% 1,000 ML IV SCH ×2 (00:34→10:14)
[2022-10-08] MEDS: MEROPENEM 500 MG in SODIUM CHLORIDE 0.9% 100 ML IV SCH ×4 (03:52→22:49)
[2022-10-08 06:17] LABS: Basophils % 0.4 % (0.0-0.8); Eosinophils # 0.2 10*3/uL (0.0-0.87); Eosinophils % 2.4 % (0.00-10.9); Hematocrit 30.6 VOL% (42.0-52.0); Hemoglobin 9.4 GM/DL (14.0-18.0); Immature Granulocytes % 0.5 %; Immature Granulocytes Absolute 0.04 #; Lymphocytes # 1.3 10*3/uL (1.4-4.0); Lymphocytes % 17.4 % (21.2-54.2); Mean Corpuscular HGB Conc 30.7 GM/DL (32-36); Mean Corpuscular Volume 101.3 FL (87-102); Mean Platelet Volume 10.9 FL (9.6-12.0); Monocytes % 12.7 % (1.7-12.7); Neutrophils % 66.6 % (38.7-73.9); Platelet Count 149 T/CUMM (130-400); Red Blood Count 3.02 MC/CUMM (3.8-5.5); Red Cell Distribution Width 13.9 % (9.3-17.3); White Blood Count 7.63 T/CUMM (4-12)
[2022-10-08 06:35] LABS: Calcium 10.3 MG/DL (8.5-10.1); Osmolality,Calculated 304.6 MOS/KG (273-304); Potassium 3.8 MMOL/L (3.5-5.1)
[2022-10-08 06:37] LABS: Eosinophils 4 % (0-10); Hypochromia Slight; Lymphocytes 16 % (20-55); Microcytosis Slight; Platelet Estimate Adequate; Total Cells Counted 100
[2022-10-08] MEDS: DOCUSATE SODIUM 100 MG CAPSULE PO SCH ×2 (08:00→20:27)
[2022-10-08] MEDS: FOLIC ACID 1 MG TABLET PO SCH ×2 (08:02→22:04)
[2022-10-08] MEDS: amLODIPine 5 MG TABLET PO SCH (08:02)
[2022-10-08] MEDS: POTASSIUM CHLORIDE 20 MEQ TABLET PO SCH ×3 (08:02→22:05)
[2022-10-08] MEDS: PANTOPRAZOLE 40 MG TABLET PO SCH (08:02)
[2022-10-08] MEDS: ONDANSETRON 4 MG/2 ML VIAL IV PRN (08:02)
[2022-10-08] MEDS: MEGESTROL 40 MG TABLET PO SCH ×2 (11:48→22:04)
[2022-10-08] MEDS: TAMSULOSIN 0.4 MG CAPSULE PO SCH (22:05)
[2022-10-08] MEDS: TRAVOPROST 0.004% OPH SOLN 2.5 ML BOTTLE BOTH EYES SCH (22:49)
[2022-10-09] MEDS: MEROPENEM 500 MG in SODIUM CHLORIDE 0.9% 100 ML IV SCH (04:01)
[2022-10-09 06:31] LABS: Basophils % 0.3 % (0.0-0.8); Eosinophils # 0.2 10*3/uL (0.0-0.87); Eosinophils % 2.1 % (0.00-10.9); Hematocrit 30.9 VOL% (42.0-52.0); Hemoglobin 9.6 GM/DL (14.0-18.0); Immature Granulocytes % 0.3 %; Immature Granulocytes Absolute 0.03 #; Lymphocytes # 1.2 10*3/uL (1.4-4.0); Lymphocytes % 14.1 % (21.2-54.2); Mean Corpuscular HGB Conc 31.1 GM/DL (32-36); Mean Corpuscular Volume 103.3 FL (87-102); Monocytes # 0.9 10*3/uL (0.11-0.8); Monocytes % 9.8 % (1.7-12.7); Neutrophils % 73.4 % (38.7-73.9); Platelet Count 135 T/CUMM (130-400); Red Blood Count 2.99 MC/CUMM (3.8-5.5); White Blood Count 8.74 T/CUMM (4-12)
[2022-10-09 06:46] LABS: Calcium 10.4 MG/DL (8.5-10.1); Osmolality,Calculated 304.6 MOS/KG (273-304); Potassium 4.2 MMOL/L (3.5-5.1)
[2022-10-09 07:15] LABS: Eosinophils 1 % (0-10); Hypochromia Slight; Lymphocytes 10 % (20-55); Platelet Estimate Normal; Total Cells Counted 100
[2022-10-09] MEDS ORDERED: FUROSEMIDE 40 MG/4 ML VIAL IV ONE (07:41)
[2022-10-09] MEDS: MEGESTROL 40 MG TABLET PO SCH ×2 (09:45→21:18)
[2022-10-09] MEDS: amLODIPine 5 MG TABLET PO SCH (09:47)
[2022-10-09] MEDS: DOCUSATE SODIUM 100 MG CAPSULE PO SCH ×2 (09:47→21:18)
[2022-10-09] MEDS: FOLIC ACID 1 MG TABLET PO SCH ×2 (09:47→21:18)
[2022-10-09] MEDS: POTASSIUM CHLORIDE 20 MEQ TABLET PO SCH ×3 (09:47→21:18)
[2022-10-09] MEDS: PANTOPRAZOLE 40 MG TABLET PO SCH (09:47)
[2022-10-09] MEDS: SODIUM CHLORIDE 0.45% 1,000 ML IV SCH (09:49)
[2022-10-09] MEDS: TAMSULOSIN 0.4 MG CAPSULE PO SCH (21:18)
[2022-10-09] MEDS: TRAVOPROST 0.004% OPH SOLN 2.5 ML BOTTLE BOTH EYES SCH (23:59)
[2022-10-10] MEDS: SODIUM CHLORIDE 0.45% 1,000 ML IV SCH ×2 (07:29→10:05)
[2022-10-10] MEDS: DEXTROSE 5% 1,000 ML IV SCH (07:30)
[2022-10-10 08:50] LABS: Basophils % 0.2 % (0.0-0.8); Eosinophils # 0.3 10*3/uL (0.0-0.87); Eosinophils % 3.1 % (0.00-10.9); Hematocrit 30.7 VOL% (42.0-52.0); Hemoglobin 9.6 GM/DL (14.0-18.0); Immature Granulocytes % 0.3 %; Immature Granulocytes Absolute 0.03 #; Lymphocytes # 1.2 10*3/uL (1.4-4.0); Lymphocytes % 13.5 % (21.2-54.2); Mean Corpuscular HGB Conc 31.3 GM/DL (32-36); Mean Corpuscular Volume 100.3 FL (87-102); Mean Platelet Volume 11.5 FL (9.6-12.0); Monocytes # 0.8 10*3/uL (0.11-0.8); Monocytes % 8.9 % (1.7-12.7); Platelet Count 141 T/CUMM (130-400); Red Blood Count 3.06 MC/CUMM (3.8-5.5); Red Cell Distribution Width 13.7 % (9.3-17.3)
[2022-10-10 09:11] LABS: Albumin 2.2 G/DL (3.4-5.0); Bilirubin,Total 0.5 MG/DL (0.20-1.00); Calcium 10.5 MG/DL (8.5-10.1); Potassium 4.1 MMOL/L (3.5-5.1); Total Protein 7.9 G/DL (6.4-8.2)
[2022-10-10] MEDS: amLODIPine 5 MG TABLET PO SCH (10:03)
[2022-10-10] MEDS: DOCUSATE SODIUM 100 MG CAPSULE PO SCH ×2 (10:03→20:01)
[2022-10-10] MEDS: MEGESTROL 40 MG TABLET PO SCH ×2 (10:04→20:47)
[2022-10-10] MEDS: PANTOPRAZOLE 40 MG TABLET PO SCH (10:04)
[2022-10-10] MEDS: FOLIC ACID 1 MG TABLET PO SCH ×2 (10:04→20:47)
[2022-10-10] MEDS: POTASSIUM CHLORIDE 20 MEQ TABLET PO SCH ×3 (10:04→20:47)
[2022-10-10] MEDS: TAMSULOSIN 0.4 MG CAPSULE PO SCH (20:47)
[2022-10-10] MEDS: TRAVOPROST 0.004% OPH SOLN 2.5 ML BOTTLE BOTH EYES SCH (20:58)
[2022-10-11] MEDS: SODIUM CHLORIDE 0.45% 1,000 ML IV SCH (02:40)
[2022-10-11 06:12] LABS: Basophils % 0.3 % (0.0-0.8); Eosinophils # 0.2 10*3/uL (0.0-0.87); Eosinophils % 2.4 % (0.00-10.9); Hematocrit 30.6 VOL% (42.0-52.0); Hemoglobin 9.7 GM/DL (14.0-18.0); Immature Granulocytes % 0.4 %; Immature Granulocytes Absolute 0.04 #; Lymphocytes # 1.1 10*3/uL (1.4-4.0); Lymphocytes % 11.6 % (21.2-54.2); Mean Corpuscular HGB Conc 31.7 GM/DL (32-36); Mean Corpuscular Volume 100.3 FL (87-102); Mean Platelet Volume 12.2 FL (9.6-12.0); Monocytes % 10.8 % (1.7-12.7); Neutrophils % 74.5 % (38.7-73.9); Platelet Count 134 T/CUMM (130-400); Red Blood Count 3.05 MC/CUMM (3.8-5.5); Red Cell Distribution Width 13.6 % (9.3-17.3); White Blood Count 9.58 T/CUMM (4-12)
[2022-10-11 06:54] LABS: Albumin 2.2 G/DL (3.4-5.0); Bilirubin,Total 0.5 MG/DL (0.20-1.00); Calcium 10.7 MG/DL (8.5-10.1); Potassium 4.2 MMOL/L (3.5-5.1)
[2022-10-11] MEDS: POTASSIUM CHLORIDE 20 MEQ TABLET PO SCH ×3 (09:51→21:03)
[2022-10-11] MEDS: amLODIPine 5 MG TABLET PO SCH (09:51)
[2022-10-11] MEDS: FOLIC ACID 1 MG TABLET PO SCH ×2 (09:51→21:03)
[2022-10-11] MEDS: PANTOPRAZOLE 40 MG TABLET PO SCH (09:51)
[2022-10-11] MEDS: MEGESTROL 40 MG TABLET PO SCH ×2 (09:51→21:03)
[2022-10-11] MEDS: DOCUSATE SODIUM 100 MG CAPSULE PO SCH ×2 (09:54→21:02)
[2022-10-11] MEDS: DEXTROSE 5% NACL 0.45% 1,000 ML IV SCH ×2 (09:54→23:40)
[2022-10-11] MEDS: TAMSULOSIN 0.4 MG CAPSULE PO SCH (21:03)
[2022-10-11] MEDS: TRAVOPROST 0.004% OPH SOLN 2.5 ML BOTTLE BOTH EYES SCH (21:04)
[2022-10-12 07:22] LABS: Basophils % 0.2 % (0.0-0.8); Eosinophils # 0.3 10*3/uL (0.0-0.87); Hematocrit 28.8 VOL% (42.0-52.0); Hemoglobin 9.3 GM/DL (14.0-18.0); Immature Granulocytes % 0.5 %; Immature Granulocytes Absolute 0.04 #; Lymphocytes # 1.1 10*3/uL (1.4-4.0); Lymphocytes % 12.5 % (21.2-54.2); Mean Corpuscular HGB Conc 32.3 GM/DL (32-36); Mean Platelet Volume 12.5 FL (9.6-12.0); Monocytes # 0.8 10*3/uL (0.11-0.8); Monocytes % 9.6 % (1.7-12.7); Neutrophils % 74.2 % (38.7-73.9); Platelet Count 134 T/CUMM (130-400); Red Blood Count 2.88 MC/CUMM (3.8-5.5); Red Cell Distribution Width 13.5 % (9.3-17.3); White Blood Count 8.72 T/CUMM (4-12)
[2022-10-12 07:39] LABS: Alanine Aminotransferase 31 U/L (16-61); Alkaline Phosphatase 72 U/L (45-117); Aspartate Amino Transferase 37 U/L (0-37); Bilirubin,Total < 0.39 MG/DL (0.20-1.00); Blood Urea Nitrogen 15 MG/DL (7-18); Calcium 10.5 MG/DL (8.5-10.1); Carbon Dioxide 19 MMOL/L (21-32); Chloride 124 MMOL/L (98-107); Glucose 115 MG/DL (74-106); Osmolality,Calculated 295.3 MOS/KG (273-304); Potassium 3.9 MMOL/L (3.5-5.1); Sodium 148 MMOL/L (136-145); Total Protein 7.7 G/DL (6.4-8.2)
[2022-10-12 07:44] LABS: Eosinophils 3 % (0-10); Lymphocytes 8 % (20-55); Platelet Estimate Normal; Total Cells Counted 100
[2022-10-12] MEDS: DOCUSATE SODIUM 100 MG CAPSULE PO SCH ×2 (09:51→22:10)
[2022-10-12] MEDS: PANTOPRAZOLE 40 MG TABLET PO SCH (09:52)
[2022-10-12] MEDS: amLODIPine 5 MG TABLET PO SCH (09:52)
[2022-10-12] MEDS: FOLIC ACID 1 MG TABLET PO SCH ×2 (09:52→22:04)
[2022-10-12] MEDS: POTASSIUM CHLORIDE 20 MEQ TABLET PO SCH ×3 (09:52→22:04)
[2022-10-12] MEDS: MEGESTROL 40 MG TABLET PO SCH ×2 (09:52→22:04)
[2022-10-12] MEDS: DEXTROSE 5% NACL 0.45% 1,000 ML IV SCH (12:58)
[2022-10-12] MEDS: AMINO ACIDS/DEXT/LYTES 4.25-5% 2,000 ML IV SCH (17:10)
[2022-10-12] MEDS: TRAVOPROST 0.004% OPH SOLN 2.5 ML BOTTLE BOTH EYES SCH (22:04)
[2022-10-12] MEDS: TAMSULOSIN 0.4 MG CAPSULE PO SCH (22:04)
[2022-10-13] MEDS: DEXTROSE 5% NACL 0.45% 1,000 ML IV SCH ×2 (02:18→17:25)
[2022-10-13 05:49] LABS: Basophils % 0.1 % (0.0-0.8); Eosinophils # 0.3 10*3/uL (0.0-0.87); Eosinophils % 3.4 % (0.00-10.9); Hematocrit 29.2 VOL% (42.0-52.0); Hemoglobin 9.3 GM/DL (14.0-18.0); Immature Granulocytes % 0.7 %; Immature Granulocytes Absolute 0.06 #; Lymphocytes # 1.2 10*3/uL (1.4-4.0); Lymphocytes % 13.6 % (21.2-54.2); Mean Corpuscular HGB Conc 31.8 GM/DL (32-36); Mean Corpuscular Volume 98.3 FL (87-102); Mean Platelet Volume 11.9 FL (9.6-12.0); Monocytes # 0.8 10*3/uL (0.11-0.8); Monocytes % 9.5 % (1.7-12.7); Neutrophils % 72.7 % (38.7-73.9); Platelet Count 141 T/CUMM (130-400); Red Blood Count 2.97 MC/CUMM (3.8-5.5); Red Cell Distribution Width 13.5 % (9.3-17.3); White Blood Count 8.74 T/CUMM (4-12)
[2022-10-13 06:12] LABS: Alanine Aminotransferase 38 U/L (16-61); Albumin 1.9 G/DL (3.4-5.0); Alkaline Phosphatase 72 U/L (45-117); Aspartate Amino Transferase 42 U/L (0-37); Bilirubin,Total < 0.39 MG/DL (0.20-1.00); Blood Urea Nitrogen 17 MG/DL (7-18); Calcium 10.6 MG/DL (8.5-10.1); Carbon Dioxide 20 MMOL/L (21-32); Chloride 122 MMOL/L (98-107); Glucose 145 MG/DL (74-106); Osmolality,Calculated 294.6 MOS/KG (273-304); Potassium 4.6 MMOL/L (3.5-5.1); Sodium 146 MMOL/L (136-145); Total Protein 7.8 G/DL (6.4-8.2)
[2022-10-13 06:18] LABS: Eosinophils 4 % (0-10); Lymphocytes 10 % (20-55); Platelet Estimate Adequate; Total Cells Counted 100
[2022-10-13] MEDS: POTASSIUM CHLORIDE 20 MEQ TABLET PO SCH ×3 (09:43→22:00)
[2022-10-13] MEDS: FOLIC ACID 1 MG TABLET PO SCH ×2 (09:43→22:00)
[2022-10-13] MEDS: MULTIVITAMIN (CENTRUM) TABLET PO SCH (09:43)
[2022-10-13] MEDS: DOCUSATE SODIUM 100 MG CAPSULE PO SCH ×2 (09:43→22:00)
[2022-10-13] MEDS: MEGESTROL 40 MG TABLET PO SCH ×2 (09:43→22:00)
[2022-10-13] MEDS: amLODIPine 5 MG TABLET PO SCH (09:43)
[2022-10-13] MEDS: PANTOPRAZOLE 40 MG TABLET PO SCH (09:44)
[2022-10-13] MEDS: RIVASTIGMINE 4.6 MG/24 HR PATCH TRANSDERM SCH (16:39)
[2022-10-13] MEDS: AMINO ACIDS/DEXT/LYTES 4.25-5% 2,000 ML IV SCH (17:26)
[2022-10-13] MEDS: FAT EMULSION 20% 250 ML IV SCH (17:27)
[2022-10-13] MEDS: TRAVOPROST 0.004% OPH SOLN 2.5 ML BOTTLE BOTH EYES SCH (22:00)
[2022-10-13] MEDS: TAMSULOSIN 0.4 MG CAPSULE PO SCH (22:00)
[2022-10-14] MEDS: DEXTROSE 5% NACL 0.45% 1,000 ML IV SCH ×2 (03:33→16:43)
[2022-10-14 05:00] LABS: Basophils % 0.2 % (0.0-0.8); Eosinophils # 0.4 10*3/uL (0.0-0.87); Hemoglobin 9.4 GM/DL (14.0-18.0); Immature Granulocytes % 0.6 %; Immature Granulocytes Absolute 0.06 #; Lymphocytes # 1.3 10*3/uL (1.4-4.0); Lymphocytes % 14.3 % (21.2-54.2); Mean Corpuscular HGB Conc 31.3 GM/DL (32-36); Mean Platelet Volume 11.8 FL (9.6-12.0); Monocytes # 0.8 10*3/uL (0.11-0.8); Monocytes % 8.6 % (1.7-12.7); Neutrophils % 72.3 % (38.7-73.9); Platelet Count 142 T/CUMM (130-400); Red Cell Distribution Width 13.2 % (9.3-17.3); White Blood Count 9.28 T/CUMM (4-12)
[2022-10-14 05:24] LABS: Alanine Aminotransferase 55 U/L (16-61); Alkaline Phosphatase 87 U/L (45-117); Aspartate Amino Transferase 56 U/L (0-37); Bilirubin,Total < 0.39 MG/DL (0.20-1.00); Blood Urea Nitrogen 16 MG/DL (7-18); Calcium 10.8 MG/DL (8.5-10.1); Carbon Dioxide 18 MMOL/L (21-32); Chloride 115 MMOL/L (98-107); Glucose 149 MG/DL (74-106); Osmolality,Calculated 280.5 MOS/KG (273-304); Potassium 4.8 MMOL/L (3.5-5.1); Sodium 139 MMOL/L (136-145)
[2022-10-14] MEDS: DOCUSATE SODIUM 100 MG CAPSULE PO SCH ×2 (08:45→21:31)
[2022-10-14] MEDS: RIVASTIGMINE 4.6 MG/24 HR PATCH TRANSDERM SCH (08:45)
[2022-10-14] MEDS: FOLIC ACID 1 MG TABLET PO SCH ×2 (08:46→21:31)
[2022-10-14] MEDS: PANTOPRAZOLE 40 MG TABLET PO SCH (08:46)
[2022-10-14] MEDS: amLODIPine 5 MG TABLET PO SCH (08:46)
[2022-10-14] MEDS: POTASSIUM CHLORIDE 20 MEQ TABLET PO SCH ×3 (08:49→21:31)
[2022-10-14] MEDS: MULTIVITAMIN (CENTRUM) TABLET PO SCH (08:50)
[2022-10-14] MEDS: MEGESTROL 40 MG TABLET PO SCH ×2 (08:50→21:31)
[2022-10-14] MEDS: FAT EMULSION 20% 250 ML IV SCH (16:44)
[2022-10-14] MEDS: AMINO ACIDS/DEXT/LYTES 4.25-5% 2,000 ML IV SCH (17:29)
[2022-10-14] MEDS: TAMSULOSIN 0.4 MG CAPSULE PO SCH (21:31)
[2022-10-14] MEDS: TRAVOPROST 0.004% OPH SOLN 2.5 ML BOTTLE BOTH EYES SCH (21:31)
[2022-10-15] MEDS: DEXTROSE 5% NACL 0.45% 1,000 ML IV SCH ×2 (05:30→19:00)
[2022-10-15 05:42] LABS: Basophils % 0.3 % (0.0-0.8); Eosinophils # 0.3 10*3/uL (0.0-0.87); Eosinophils % 4.5 % (0.00-10.9); Hematocrit 28.8 VOL% (42.0-52.0); Hemoglobin 9.3 GM/DL (14.0-18.0); Immature Granulocytes % 0.4 %; Immature Granulocytes Absolute 0.03 #; Lymphocytes # 1.1 10*3/uL (1.4-4.0); Lymphocytes % 15.2 % (21.2-54.2); Mean Corpuscular HGB Conc 32.3 GM/DL (32-36); Mean Platelet Volume 12.5 FL (9.6-12.0); Monocytes # 0.7 10*3/uL (0.11-0.8); Monocytes % 8.9 % (1.7-12.7); Neutrophils % 70.7 % (38.7-73.9); Platelet Count 122 T/CUMM (130-400); Red Blood Count 2.97 MC/CUMM (3.8-5.5); Red Cell Distribution Width 13.1 % (9.3-17.3); White Blood Count 7.49 T/CUMM (4-12)
[2022-10-15 06:10] LABS: Alanine Aminotransferase 48 U/L (16-61); Alkaline Phosphatase 87 U/L (45-117); Aspartate Amino Transferase 35 U/L (0-37); Bilirubin,Total < 0.39 MG/DL (0.20-1.00); Blood Urea Nitrogen 17 MG/DL (7-18); Calcium 10.7 MG/DL (8.5-10.1); Carbon Dioxide 17 MMOL/L (21-32); Chloride 111 MMOL/L (98-107); Glucose 205 MG/DL (74-106); Osmolality,Calculated 271.5 MOS/KG (273-304); Potassium 5.4 MMOL/L (3.5-5.1); Sodium 132 MMOL/L (136-145); Total Protein 8.1 G/DL (6.4-8.2)
[2022-10-15] MEDS: FOLIC ACID 1 MG TABLET PO SCH ×2 (09:04→22:14)
[2022-10-15] MEDS: PANTOPRAZOLE 40 MG TABLET PO SCH (09:04)
[2022-10-15] MEDS: DOCUSATE SODIUM 100 MG CAPSULE PO SCH ×2 (09:04→22:14)
[2022-10-15] MEDS: amLODIPine 5 MG TABLET PO SCH (09:05)
[2022-10-15] MEDS: RIVASTIGMINE 4.6 MG/24 HR PATCH TRANSDERM SCH (09:06)
[2022-10-15] MEDS: MULTIVITAMIN (CENTRUM) TABLET PO SCH (09:06)
[2022-10-15] MEDS: MEGESTROL 40 MG TABLET PO SCH ×2 (09:06→22:15)
[2022-10-15] MEDS: POTASSIUM CHLORIDE 20 MEQ TABLET PO SCH ×3 (09:06→22:14)
[2022-10-15] MEDS: AMINO ACIDS/DEXT/LYTES 4.25-5% 2,000 ML IV SCH (16:08)
[2022-10-15] MEDS: FAT EMULSION 20% 250 ML IV SCH (16:09)
[2022-10-15] MEDS: ONDANSETRON 4 MG/2 ML VIAL IV PRN ×2 (17:09→22:13)
[2022-10-15] MEDS: TAMSULOSIN 0.4 MG CAPSULE PO SCH (22:14)
[2022-10-15] MEDS: TRAVOPROST 0.004% OPH SOLN 2.5 ML BOTTLE BOTH EYES SCH (22:15)
[2022-10-16 06:18] LABS: Basophils % 0.3 % (0.0-0.8); Eosinophils # 0.5 10*3/uL (0.0-0.87); Eosinophils % 5.9 % (0.00-10.9); Hemoglobin 9.1 GM/DL (14.0-18.0); Immature Granulocytes % 0.8 %; Immature Granulocytes Absolute 0.06 #; Lymphocytes # 1.4 10*3/uL (1.4-4.0); Lymphocytes % 18.4 % (21.2-54.2); Mean Corpuscular HGB Conc 33.7 GM/DL (32-36); Mean Corpuscular Volume 95.1 FL (87-102); Mean Platelet Volume 11.5 FL (9.6-12.0); Monocytes % 13.3 % (1.7-12.7); Neutrophils % 61.3 % (38.7-73.9); Platelet Count 152 T/CUMM (130-400); Red Blood Count 2.84 MC/CUMM (3.8-5.5); Red Cell Distribution Width 12.9 % (9.3-17.3); White Blood Count 7.76 T/CUMM (4-12)
[2022-10-16 06:38] LABS: Alanine Aminotransferase 38 U/L (16-61); Albumin 1.9 G/DL (3.4-5.0); Alkaline Phosphatase 94 U/L (45-117); Aspartate Amino Transferase 24 U/L (0-37); Bilirubin,Total < 0.39 MG/DL (0.20-1.00); Blood Urea Nitrogen 17 MG/DL (7-18); Calcium 10.8 MG/DL (8.5-10.1); Carbon Dioxide 17 MMOL/L (21-32); Chloride 108 MMOL/L (98-107); Glucose 245 MG/DL (74-106); Osmolality,Calculated 267.9 MOS/KG (273-304); Potassium 5.4 MMOL/L (3.5-5.1); Sodium 129 MMOL/L (136-145); Total Protein 7.7 G/DL (6.4-8.2)
[2022-10-16] MEDS: amLODIPine 5 MG TABLET PO SCH (10:26)
[2022-10-16] MEDS: FOLIC ACID 1 MG TABLET PO SCH ×2 (10:26→21:17)
[2022-10-16] MEDS: DOCUSATE SODIUM 100 MG CAPSULE PO SCH ×2 (10:26→21:17)
[2022-10-16] MEDS: MEGESTROL 40 MG TABLET PO SCH ×2 (10:26→21:16)
[2022-10-16] MEDS: PANTOPRAZOLE 40 MG TABLET PO SCH (10:26)
[2022-10-16] MEDS: MULTIVITAMIN (CENTRUM) TABLET PO SCH (10:26)
[2022-10-16] MEDS: POTASSIUM CHLORIDE 20 MEQ TABLET PO SCH ×3 (10:26→21:16)
[2022-10-16] MEDS: RIVASTIGMINE 4.6 MG/24 HR PATCH TRANSDERM SCH (10:26)
[2022-10-16] MEDS: DEXTROSE 5% NACL 0.45% 1,000 ML IV SCH (14:46)
[2022-10-16] MEDS: FAT EMULSION 20% 250 ML IV SCH (17:45)
[2022-10-16] MEDS: AMINO ACIDS/DEXT/LYTES 4.25-5% 2,000 ML IV SCH (17:46)
[2022-10-16] MEDS: TAMSULOSIN 0.4 MG CAPSULE PO SCH (21:17)
[2022-10-16] MEDS: SODIUM BICARBONATE 650 MG TABLET PO SCH (21:17)
[2022-10-16] MEDS: TRAVOPROST 0.004% OPH SOLN 2.5 ML BOTTLE BOTH EYES SCH (21:23)
[2022-10-17 05:33] LABS: Osmolality,Calculated 265.2 MOS/KG (273-304); Potassium 5.5 MMOL/L (3.5-5.1)
[2022-10-17 05:36] LABS: Parathyroid Hormone Intact 42.6 PG/ML (18.4-80.1)
[2022-10-17 05:41] LABS: 25 Hydroxy Vitamin D Total 11.6 NG/ML (30-100)
[2022-10-17] MEDS: SODIUM BICARBONATE 650 MG TABLET PO SCH ×2 (08:20→21:59)
[2022-10-17] MEDS: DOCUSATE SODIUM 100 MG CAPSULE PO SCH ×2 (08:20→21:59)
[2022-10-17] MEDS: MEGESTROL 40 MG TABLET PO SCH ×2 (08:20→22:00)
[2022-10-17] MEDS: MULTIVITAMIN (CENTRUM) TABLET PO SCH (08:21)
[2022-10-17] MEDS: FOLIC ACID 1 MG TABLET PO SCH ×2 (08:21→21:59)
[2022-10-17] MEDS: POTASSIUM CHLORIDE 20 MEQ TABLET PO SCH ×3 (08:21→22:02)
[2022-10-17] MEDS: amLODIPine 5 MG TABLET PO SCH (08:21)
[2022-10-17] MEDS: RIVASTIGMINE 4.6 MG/24 HR PATCH TRANSDERM SCH (08:21)
[2022-10-17] MEDS: PANTOPRAZOLE 40 MG TABLET PO SCH (08:21)
[2022-10-17] MEDS ORDERED: SODIUM CHLORIDE 0.9% 1,000 ML IV SCH (11:00)
[2022-10-17] MEDS ORDERED: ERGOCALCIFEROL 50,000 UNIT CAPSULE PO ONE (11:00)
[2022-10-17] MEDS ORDERED: SODIUM CHLORIDE 0.45% 500 ML IV ONE (12:45)
[2022-10-17] MEDS ORDERED: SODIUM CHLORIDE 0.9% 500 ML IV ONE (12:45)
[2022-10-17] MEDS: AMINO ACIDS/DEXT/LYTES 4.25-5% 2,000 ML IV SCH ×2 (16:42→16:43)
[2022-10-17] MEDS: FAT EMULSION 20% 250 ML IV SCH (16:43)
[2022-10-17] MEDS: TAMSULOSIN 0.4 MG CAPSULE PO SCH (21:59)
[2022-10-17] MEDS: TRAVOPROST 0.004% OPH SOLN 2.5 ML BOTTLE BOTH EYES SCH (22:59)
[2022-10-18 06:02] LABS: Calcium 10.9 MG/DL (8.5-10.1); Osmolality,Calculated 266.8 MOS/KG (273-304); Potassium 4.7 MMOL/L (3.5-5.1)
[2022-10-18] MEDS: DEXTROSE 5% NACL 0.45% 1,000 ML IV SCH (09:47)
[2022-10-18] MEDS: MULTIVITAMIN (CENTRUM) TABLET PO SCH (10:30)
[2022-10-18] MEDS: DOCUSATE SODIUM 100 MG CAPSULE PO SCH (10:30)
[2022-10-18] MEDS: SODIUM BICARBONATE 650 MG TABLET PO SCH (10:45)
[2022-10-18] MEDS: amLODIPine 5 MG TABLET PO SCH (10:45)
[2022-10-18] MEDS: MEGESTROL 40 MG TABLET PO SCH (10:45)
[2022-10-18] MEDS: FOLIC ACID 1 MG TABLET PO SCH (10:45)
[2022-10-18] MEDS: PANTOPRAZOLE 40 MG TABLET PO SCH (10:45)
[2022-10-18] MEDS: POTASSIUM CHLORIDE 20 MEQ TABLET PO SCH (10:45)
[2022-10-18] MEDS: RIVASTIGMINE 4.6 MG/24 HR PATCH TRANSDERM SCH (10:58)
[2022-10-18 13:19] VITALS: BP 152/66
[2022-10-20 10:11] LABS: Kappa Free Light Chain 12.5 mg/dL; Lambda Free Light Chain 6.17 mg/dL
[2022-11-02] MEDS ORDERED: CYANOCOBALAMIN 1000 MCG/1 ML VIAL IM SCH (09:00)
== END 2022-10-18 14:30 | disposition hospice, home (50) | DRG 727 ==
LOC: N.ED 09:00 → N.2E 12:52 → SUATTDRO 12:52 → N.2E 14:45
PROVIDERS: ADMIT Family Medicine; ATTEND Internal Medicine